=== PATIENT | female | born 1995 | race Two or more races ===

== ENCOUNTER 2023-03-26 08:04 | Emergency (ER) | payer OTHER ==
[2023-03-26] MEDS ORDERED: ACETAMINOPHEN 1000 MG/100 ML BAG IVPB ONE (08:46)
[2023-03-26] MEDS ORDERED: LACTATED RINGERS SOLUTION 1000 ML INFUS.BAG IV ONE (08:46)
[2023-03-26 08:56] LABS: BASO % 0.7 % (0-2.0); HEMOGLOBIN 12.2 GM/dL (10.7-15.3); LYMPH % 14.9 % (8-40); MCH 26.5 pg (25.7-33.7); MCHC 31.2 g/dl (32.0-36.0); MEAN CELL VOLUME 84.8 fl (80-96); MEAN PLT VOLUME 11.3 fl (7.5-11.1); MONO % 7.3 % (3.8-10.2); NEUT % 76.1 % (42.8-82.8); PLATELET COUNT 159 10^3/uL (134-434); RDW 15.4 % (11.6-15.6); WHITE BLOOD COUNT 6.1 K/mm3 (4.0-10.0)
[2023-03-26 08:58] VITALS: TEMP 98; BMI 25.7
[2023-03-26 09:13] LABS: POTASSIUM 4.2 mmol/L (3.5-5.1)
[2023-03-26 09:15] LABS: CALCIUM 8.3 mg/dL (8.5-10.1)
[2023-03-26 09:16] LABS: ALBUMIN 3.8 g/dl (3.4-5.0); BLOOD UREA NITROGEN 15.1 mg/dL (7-18)
[2023-03-26 09:19] LABS: CREATININE 0.8 mg/dL (0.55-1.3)
[2023-03-26 09:21] LABS: BILIRUBIN,TOTAL 0.4 mg/dL (0.2-1); TOT PROT 7.4 g/dl (6.4-8.2)
[2023-03-26] MEDS ORDERED: ACETAMINOPHEN INJECTION 100 ML IVPB ONE (09:23)
[2023-03-26 10:09] LABS: EPI CELLS >36 /uL (0-25.1); HYALINE CASTS 1 /uL (0-3.1); PH,URINE 6.5 (5.0-8.0); URINE APPEARANCE Error; URINE BACTERIA 2324 /uL (0-1359); URINE BILIRUBIN NEGATIVE (NEGATIVE); URINE COLOR YELLOW; URINE GLUCOSE (UA) NEGATIVE (NEGATIVE); URINE KETONE NEGATIVE (NEGATIVE); URINE LEUK ESTERASE TRACE (NEGATIVE); URINE NITRITE NEGATIVE (NEGATIVE); URINE PROTEIN NEGATIVE (NEGATIVE); URINE RBC 10 /uL (0-23.9); URINE WBC 7 /uL (0-25.8)
[2023-03-26 12:04] LABS: URINE APPEARANCE CLEAR; URINE BILIRUBIN NEGATIVE (NEGATIVE); URINE COLOR YELLOW; URINE GLUCOSE (UA) NEGATIVE (NEGATIVE); URINE KETONE NEGATIVE (NEGATIVE); URINE LEUK ESTERASE NEGATIVE (NEGATIVE); URINE NITRITE NEGATIVE (NEGATIVE); URINE PROTEIN NEGATIVE (NEGATIVE); URINE UROBILINOGEN 0.2 mg/dL (0.2-1.0)
[2023-03-26 12:46] VITALS: BP 101/49; PULSE 59; RESP 16
== END 2023-03-26 12:46 | disposition home or self-care (01) ==
LOC: JER 08:04
DX: O99.891 Other specified diseases and conditions complicating pregnancy (principal); R55 Syncope and collapse; Z3A.01 Less than 8 weeks gestation of pregnancy
CPT/HCPCS: 36415; 76815-TC; 80053; 81003; 84702; 85025; 93005; 93010; 99285-25

== ENCOUNTER 2024-05-15 23:00 | Inpatient (IN) | payer OTHER ==
[2024-05-15] MEDS: LACTATED RINGERS SOLUTION 500 ML IV ONE (23:45)
[2024-05-16] MEDS: LACTATED RINGERS SOLUTION 500 ML IV ONE (00:15)
[2024-05-16] MEDS: ELECTROLYTE-148 SOLN 1,000 ML IV SCH ×3 (02:45→17:55)
[2024-05-16 03:13] VITALS: BMI 33.2
[2024-05-16 03:16] LABS: BASO % 0.2 % (0-2.0); EOS % 0.2 % (0-4.5); HEMATOCRIT 36.5 % (32.4-45.2); MCH 25.4 pg (25.7-33.7); MCHC 32.8 g/dl (32.0-36.0); MEAN CELL VOLUME 77.5 fl (80-96); MEAN PLT VOLUME 10.5 fl (7.5-11.1); MONO % 5.2 % (3.8-10.2); NEUT % 81.4 % (42.8-82.8); PLATELET COUNT 156 10^3/uL (134-434); RBC 4.71 M/mm3 (3.60-5.2); RDW 15.5 % (11.6-15.6); WHITE BLOOD COUNT 11.9 K/mm3 (4.0-10.0)
[2024-05-16 03:22] LABS: INR 0.86 (0.83-1.09); PROTHROMBIN TIME (PATIENT) 9.8 SEC (9.7-13.0)
[2024-05-16 03:25] LABS: ACTIVATED PTT 24.7 SECONDS (25.2-36.5)
[2024-05-16 03:34] LABS: POTASSIUM 4.1 mmol/L (3.5-5.1)
[2024-05-16 03:36] LABS: CALCIUM 9.5 mg/dL (8.5-10.1)
[2024-05-16 03:37] LABS: BLOOD UREA NITROGEN 11.8 mg/dL (7-18)
[2024-05-16 03:40] LABS: CREATININE 0.7 mg/dL (0.55-1.3)
[2024-05-16] MEDS ORDERED: FENTANYL/BUPIVACAINE/NS/PF - PCEA - 50 ML DISP.SYRIN EP ONE ×4 (03:40→17:14)
[2024-05-16] MEDS: FENTANYL/BUPIVACAINE/NS/PF - PCEA - 50 ML DISP.SYRIN EP SCH (03:55)
[2024-05-16] MEDS ORDERED: NALOXONE HCL 0.4 MG/ML VIAL IVPUSH PRN (03:58)
[2024-05-16] MEDS ORDERED: BUTORPHANOL TARTRATE 1 MG/ML VIAL IVPB PRN (07:48)
[2024-05-16] MEDS ORDERED: OXYTOCIN 30 UNITS in 0.9% NS 30 UNIT/500 ML INFUS.BAG IVPB ONE (12:48)
[2024-05-16] MEDS: OXYTOCIN 30 UNITS in 0.9% NS 30 UNIT/500 ML INFUS.BAG IVPB SCH (12:55)
[2024-05-16] MEDS ORDERED: BENZOCAINE 28 GM HEMORRHOIDAL OINTMENT TP PRN (13:38)
[2024-05-16] MEDS ORDERED: METHYLERGONOVINE MALEATE 0.2 MG/1 ML AMP IM PRN (13:38)
[2024-05-16] MEDS ORDERED: OXYTOCIN 30 UNITS in 0.9% NS 30 UNIT/500 ML INFUS.BAG IVPB SCH (15:15)
[2024-05-16] MEDS ORDERED: AMPICILLIN SODIUM 2 GM VIAL ONE (19:08)
[2024-05-16] MEDS: AMPICILLIN - 2 GM in SODIUM CHLORIDE 100 ML IVPB ONE (19:15)
[2024-05-16] MEDS: CITRIC ACID/SODIUM CITRATE 30 ML UNIT-DOSE CUP PO ONE (20:15)
[2024-05-16] MEDS ORDERED: ACETAMINOPHEN INJECTION 100 ML ONE (20:33)
[2024-05-16] MEDS: ACETAMINOPHEN 1000 MG/100 ML BAG IVPB ONE (20:35)
[2024-05-16] MEDS ORDERED: morphine SULFATE/PF 1 MG/2 ML (2cc Syringe - QUVA) ONE (21:00)
[2024-05-16] MEDS ORDERED: FENTANYL CITRATE/PF 50 MCG/ML VIAL ONE (21:00)
[2024-05-16] MEDS ORDERED: ceFAZolin SODIUM 1 GM VIAL ONE (21:01)
[2024-05-16] MEDS ORDERED: ONDANSETRON 4 MG/2 ML VIAL ONE (21:01)
[2024-05-16] MEDS ORDERED: METOCLOPRAMIDE HCL INJECTION 10 MG/2 ML VIAL ONE (21:01)
[2024-05-16] MEDS ORDERED: DEXAMETHASONE SOD PHOSPHATE 4 MG/1 ML VIAL ONE (21:01)
[2024-05-16] MEDS ORDERED: OXYTOCIN 10 UNITS/ML VIAL ONE (21:26)
[2024-05-16] MEDS ORDERED: AZITHROMYCIN IVPB 500 MG/250 ML BAG IVPB ONE (21:47)
[2024-05-16] MEDS ORDERED: KETOROLAC TROMETHAMINE 30 MG/1 ML VIAL ONE (21:55)
[2024-05-16] MEDS: OXYTOCIN 20 UNITS in 0.9% NS 20 UNIT/1,000 ML INFUS.BAG IV SCH (22:15)
[2024-05-16] MEDS ORDERED: OXYTOCIN 20 UNITS in 0.9% NS 20 UNIT/1,000 ML INFUS.BAG IV ONE (22:20)
[2024-05-16] MEDS ORDERED: ONDANSETRON 4 MG/2 ML VIAL IVPUSH PRN (22:24)
[2024-05-16 22:34] LABS: CORD BASE EXCESS -1.4 mmol/L (0-2); CORD HCO3 24.5 mmHg (20-29); CORD PCO2 45.4 mmHg (30-78); CORD pH 7.35 (7.14-7.44)
[2024-05-16 22:36] LABS: CORD HCO3 24.2 mmHg (20-29); CORD PCO2 61.4 mmHg (30-78); CORD pH 7.214 (7.14-7.44)
[2024-05-17] MEDS: OXYTOCIN 20 UNITS in 0.9% NS 20 UNIT/1,000 ML INFUS.BAG IV SCH (00:10)
[2024-05-17] MEDS: CEFAZOLIN 1 GM in DEXTROSE 5%-WATER - 50 ML IVPB SCH (01:02)
[2024-05-17] MEDS ORDERED: oxyCODONE HCL 5 MG TABLET PO PRN (01:38)
[2024-05-17] MEDS: morphine SULFATE/PF 1 MG/2 ML (2cc Syringe - QUVA) IT ONE (02:23)
[2024-05-17] MEDS: FERROUS SO4 325 MG TABLET (FP) PO SCH (02:24)
[2024-05-17] MEDS: AMPICILLIN - 1 GM in SODIUM CHLORIDE 100 ML IVPB SCH (02:26)
[2024-05-17] MEDS: IBUPROFEN 800 MG/8 ML IJ IVPB PRN (06:05)
[2024-05-17 08:13] LABS: BASO % 0.1 % (0-2.0); EOS % 0.1 % (0-4.5); HEMATOCRIT 30.7 % (32.4-45.2); HEMOGLOBIN 9.8 GM/dL (10.7-15.3); LYMPH % 6.5 % (8-40); MCH 25.2 pg (25.7-33.7); MEAN CELL VOLUME 78.7 fl (80-96); MEAN PLT VOLUME 10.8 fl (7.5-11.1); MONO % 5.1 % (3.8-10.2); NEUT % 88.2 % (42.8-82.8); PLATELET COUNT 146 10^3/uL (134-434); RDW 15.8 % (11.6-15.6); WHITE BLOOD COUNT 16.3 K/mm3 (4.0-10.0)
[2024-05-17] MEDS: PRENATAL VITAMINS W/ FOLIC ACID TABLET (FP) PO SCH (09:13)
[2024-05-17] MEDS: ACETAMINOPHEN 325 MG TABLET (FP) PO PRN (12:26)
[2024-05-17] MEDS: SIMETHICONE 80 MG TAB.CHEW (FP) PO PRN (12:26)
[2024-05-17] MEDS ORDERED: BISACODYL 10 MG SUPP.RECT RC PRN (13:38)
[2024-05-17] MEDS: IBUPROFEN 600 MG TABLET (FP) PO PRN (14:01)
[2024-05-17] MEDS: SENNOSIDES/DOCUSATE COMBO (SENNA PLUS) TABLET (UD) PO PRN (20:23)
[2024-05-17] MEDS: oxyCODONE HCL 5 MG TABLET PO PRN (22:13)
[2024-05-18] MEDS: DIPHTH,PERTUSS(ACELL),TET 0.5 ML DISP.SYRIN IM ONE (11:45)
[2024-05-19 07:34] LABS: BASO % 0.4 % (0-2.0); EOS % 1.2 % (0-4.5); HEMOGLOBIN 9.2 GM/dL (10.7-15.3); LYMPH % 22.1 % (8-40); MCH 25.2 pg (25.7-33.7); MCHC 31.9 g/dl (32.0-36.0); MEAN CELL VOLUME 79.2 fl (80-96); MEAN PLT VOLUME 10.8 fl (7.5-11.1); MONO % 6.7 % (3.8-10.2); NEUT % 69.6 % (42.8-82.8); PLATELET COUNT 153 10^3/uL (134-434); RBC 3.66 M/mm3 (3.60-5.2); RDW 16.2 % (11.6-15.6); WHITE BLOOD COUNT 7.3 K/mm3 (4.0-10.0)
[2024-05-19 10:22] VITALS: BP 106/62; PULSE 78; RESP 18; TEMP 98.4
== END 2024-05-19 14:15 | disposition home or self-care (01) | DRG 540 ==
LOC: JDEL 23:00 → JLDR 05-16 02:40 → J3W 05-17 00:47
PROVIDERS: ADMIT Obstetrics & Gynecology; ATTEND Obstetrics & Gynecology
PROC: 10D00Z1 Extraction of Products of Conception, Low, Open Approach (ICD-10-PCS; principal; 2024-05-16)
DX: O63.0 Prolonged first stage (of labor) (principal); O41.1230 Chorioamnionitis, third trimester, not applicable or unspecified; O99.213 Obesity complicating pregnancy, third trimester; O62.0 Primary inadequate contractions; Z3A.39 39 weeks gestation of pregnancy; Z37.0 Single live birth
CPT/HCPCS: 36415; 36600; 80048; 82803; 85025; 85610; 85730; 86780; 86850; 86900; 86901; 88307-TC; 90715; J0131

== ENCOUNTER 2025-02-21 10:15 | Emergency (ER) | payer OTHER ==
[2025-02-21 10:23] VITALS: BP 112/73; PULSE 70; RESP 18; TEMP 98.6; BMI 29.0
[2025-02-21] MEDS: SODIUM CHLORIDE 0.9% 500 ML INFUS.BAG IV ONE (11:00)
[2025-02-21] MEDS: ONDANSETRON 4 MG/2 ML VIAL IVPB ONE (11:00)
[2025-02-21] MEDS: FAMOTIDINE 20 MG/50 ML IVPB 20 MG/50 ML MG IVPB ONE (11:00)
[2025-02-21] MEDS: ACETAMINOPHEN 1000 MG/100 ML BAG IVPB ONE (11:00)
[2025-02-21] MEDS ORDERED: ACETAMINOPHEN INJECTION 100 ML ONE (11:07)
[2025-02-21] MEDS ORDERED: ONDANSETRON 4 MG/2 ML VIAL ONE (11:07)
[2025-02-21] MEDS ORDERED: FAMOTIDINE 20 MG/50 ML IVPB 20 MG/50 ML MG IVPB ONE (11:07)
[2025-02-21 11:15] LABS: INR 1.14 (0.83-1.09); PROTHROMBIN TIME (PATIENT) 12.4 SEC (9.7-13.0)
[2025-02-21 11:17] LABS: ACTIVATED PTT 28.4 SECONDS (25.2-36.5)
[2025-02-21 11:24] LABS: EPI CELLS 26 /uL (0-25.1); HYALINE CASTS 2 /uL (0-3.1); URINE APPEARANCE CLEAR; URINE BACTERIA 414 /uL (0-1359); URINE BILIRUBIN NEGATIVE (NEGATIVE); URINE COLOR DK YELLOW; URINE GLUCOSE (UA) NEGATIVE (NEGATIVE); URINE KETONE 1+ (NEGATIVE); URINE LEUK ESTERASE NEGATIVE (NEGATIVE); URINE NITRITE NEGATIVE (NEGATIVE); URINE PROTEIN 2+ (NEGATIVE); URINE RBC 13 /uL (0-23.9); URINE WBC 14 /uL (0-25.8)
[2025-02-21 11:29] LABS: ABSOLUTE IMMATURE GRANULOCYTES 0.01 x10^3/uL (0.0-0.031); BASOPHILS # 0.02 x10^3/uL (0.01-0.08); HEMATOCRIT 39.9 % (34.1-44.9); HEMOGLOBIN 12.5 g/dL (11.2-15.7); MCHC 31.3 g/dl (32.2-35.5); MEAN CELL VOLUME 80.9 fl (79.4-94.8); MONOCYTE # 0.39 x10^3/uL (0.24-0.86); MONOCYTE % 5.7 % (4.7-12.5); PLATELET COUNT 177 x10^3/uL (182-369); RDW 14.5 % (12.1-16.5)
[2025-02-21 11:55] LABS: POTASSIUM 3.9 mmol/L (3.5-5.1)
[2025-02-21 12:02] LABS: ALBUMIN 4.9 g/dl (3.4-5.0); BLOOD UREA NITROGEN 7.6 mg/dL (7-18); CALCIUM 10.2 mg/dL (8.5-10.1)
[2025-02-21 12:06] LABS: BILIRUBIN,TOTAL 1.4 mg/dL (0.2-1); TOT PROT 8.7 g/dl (6.4-8.2)
== END 2025-02-21 12:57 | disposition home or self-care (01) ==
LOC: JER 10:15
PROC: 3E033GC Introduction of Other Therapeutic Substance into Peripheral Vein, Percutaneous Approach (ICD-10-PCS; principal; 2025-02-21)
PROC: 3E033NZ Introduction of Analgesics, Hypnotics, Sedatives into Peripheral Vein, Percutaneous Approach (ICD-10-PCS; 2025-02-21)
PROC: 3E033GC Introduction of Other Therapeutic Substance into Peripheral Vein, Percutaneous Approach (ICD-10-PCS; 2025-02-21)
DX: R55 Syncope and collapse (principal); R11.10 Vomiting, unspecified; R63.8 Other symptoms and signs concerning food and fluid intake; R53.1 Weakness; F43.9 Reaction to severe stress, unspecified
CPT/HCPCS: 36415; 71046-TC-FY; 80053; 81003; 84484; 84703; 85025; 85610; 85730; 86850; 86900; 86901; 93005; 93010; 96365; 96375; 99285-25